=== PATIENT | male | born 1980 | race Caucasian/White ===

== ENCOUNTER 2017-04-24 16:53 | Emergency (ER) | payer MEDICAID ==
[~2017-04-24] VITALS: Ht 162.6 cm; Wt 100.5 kg
[2017-04-24 16:57] VITALS: Ht 162.6 cm; Wt 100.5 kg
[2017-04-24] MEDS ORDERED: CEPHALEXIN 500 MG CAP PO ONE (18:30)
[2017-04-24] MEDS ORDERED: TRIMETHOPRIM/SULFAMETHOX (DS) TAB PO ONE (18:30)
[2017-04-24] MEDS ORDERED: HYDROCODONE/APAP (5/325) TAB PO ONE (18:30)
--- NOTE | 2017-04-24 19:07 | RADRPT ---
PROCEDURE: US Lower extremity Venous. CLINICAL INDICATION: left leg swelling and pain TECHNIQUE: Multiple sonographic images of the left lower extremity deep venous system was obtained utilizing grayscale, color-flow, compressive sonography and doppler imaging with augmentation. The images were reviewed on a PACS workstation. COMPARISON: None. FINDINGS: There is normal compressibility and flow within the left common femoral, deep femoral, superficial f emoral, posterior tibial, peroneal and popliteal veins. IMPRESSION: No sonographic evidence for deep venous thrombosis. RPTAT:AAJJ Physician Juli Date Time Electronically viewed and signed by Physician Juli on 04/24/2017 19:06 LENNY/
--- NOTE | 2017-04-24 19:38 | RADRPT ---
PROCEDURE: XR Ankle. CLINICAL INDICATION: Swelling and ankle pain TECHNIQUE: Three views of the left ankle were performed. COMPARISON: None. FINDINGS: There is no acute osseous or articular abnormality. No evidence for fracture. Bone mineral density is preserved. The articular surfaces are smooth without evidence of marginal erosions. Os trigonum. There is marked soft tissue swelling about the ankle. IMPRESSION: 1. No acute osseous abnormality. 2. Marked soft tissue swelling. RPTAT: UU .Israel Hemphill MD, Date Time Electronically viewed and signed by .Israel Hemphill MD, MD on 04/24/2017 19:38 .d/
--- NOTE | 2017-04-24 19:39 | RADRPT ---
PROCEDURE: XR Tibia and Fibula. CLINICAL INDICATION: Swelling and pain TECHNIQUE: Two views of the left tibia and fibula are available for review. COMPARISON: None available FINDINGS: The left tibia and fibula are intact. No acute fracture or dislocation is seen. No radiopaque fore ign body is identified. There is marked soft tissue swelling about the ankle. IMPRESSION: 1. Soft tissue swelling about the ankle. 2. No acute osseous abnormality. RPTAT: UU .Israel Hemphill MD, Date Time Electronically viewed and signed by .Israel Hemphill MD, MD on 04/24/2017 19:39 .d/
[2017-04-24] MEDS ORDERED: IBUP-1542 PO (19:47)
[2017-04-24] MEDS ORDERED: CEPH-443 PO (19:47)
[2017-04-24] MEDS ORDERED: SULF1TAB31 PO (19:47)
[2017-04-24] MEDS ORDERED: HYDR-906 PO (19:47)
--- NOTE | 2017-04-24 19:55 | ERD ---
ER Documentation Chief Complaint Date/Time DATE: 04/24/17 TIME: 19:48 Chief Complaint Complains of left foot and ankle pain x 3 days HPI Patient is a 36-year-old male who presents to the emergency department for concerns of left lower leg pain 3 days. Patient is a construction equipment mechanic helper. He denies any trauma or fall injuries. Patient states he has pain with ambulating. Patient reports noticing some redness to the anterior aspect of his lower leg. He does have some small punctate lesions. Patient also has significant swelling to his left lower leg. Patient denies any fevers, chills, nausea, vomiting, chest pain, shortness of breath or LOC. No recent travel, prolonged sitting, surgeries or history of DVT/PE.. No sick contacts. ROS All systems reviewed and are negative except as per history of present illness. Medications Home Meds Active Scripts Hydrocodone/Acetaminophen (Macy 5-325 Tablet) 1 Each Tablet, 1 TAB PO Q6H Y for PAIN, #7 TAB Prov:LIBORIO PALOMO PA-C 04/24/17 Ibuprofen* (Motrin*) 600 Mg Tab, 600 MG PO Q6, #30 TAB Prov:LIBORIO PALOMO PA-C 04/24/17 Cephalexin* (Keflex*) 500 Mg Capsule, 500 MG PO TID for 10 Days, CAP Prov:LIBORIO PALOMO PA-C 04/24/17 Sulfamethoxazole/Trimethoprim* (Bactrim Ds* Tablet) 1 Each Tablet, 1 TAB PO BID , #20 TAB Prov:LIBORIO PALOMO PA-C 04/24/17 Allergies Allergies: Coded Allergies: No Known Allergy (Unverified , 04/24/17) PMhx/Soc Medical and Surgical Hx: pt denies Medical Hx, pt denies Surgical Hx History of Surgery: No Anesthesia Reaction: No Hx Neurological Disorder: No Hx Respiratory Disorders: No Hx Cardiac Disorders: No Hx Psychiatric Problems: No Hx Miscellaneous Medical Probl: No Hx Alcohol Use: No Hx Substance Use: No Hx Tobacco Use: No Smoking Status: Never smoker Physical Exam Vitals Vital Signs Date Time Temp Pulse Resp B/P Pulse Ox O2 Delivery O2 Flow Rate FiO2 04/24/17 20:08 98.3 82 18 119/77 97 Room Air 04/24/17 16:57 100.0 110 20 149/85 97 Physical Exam GENERAL: Well-developed, well-nourished male. Appears in no acute distress. HEAD: Normocephalic, atraumatic. EYES: Pupils are equally reactive bilaterally. EOMs grossly intact. No conjunctival erythema. ENT: Moist mucous membranes. No uvula deviation. No kissing tonsils. NECK: Supple. No meningismus. Normal range of motion of the neck. LUNG: Clear to auscultation bilaterally. No rhonchi, wheezing, rales or coarse breath sounds. HEART: Regular rate and rhythm. No murmurs, rubs or gallops. EXTREMITIES: Equal pulses bilaterally. No peripheral clubbing, cyanosis or edema. No unilateral leg swelling. NEUROLOGIC: Alert and oriented. Moving all four extremities without any difficulty. Normal speech. Steady gait. SKIN: Normal color. Warm and dry. LEFT LE: No obvious deformity. Swelling of the ankle and anterior flor noted. Faint erythema noted throughout the lower extremity. No circumferential erythema.. 2 Small punctate lesions noted. Normal range of motion of the knee. Decreased range of motion of the ankle secondary to swelling. Area is tender to touch and is slightly warm. Sensation intact to light touch. Neurovascularly intact. (Able to plantarflex, dorsiflex, vladislav foot, invert foot , raise big toe.) 2+ DP and DT pulses. Results 24 hrs Current Medications Medications (Trade) Dose Ordered Sig/Ly Route PRN Reason Start Time Stop Time Status Last Admin Dose Admin Trimethoprim/ Sulfamethoxazole (Bactrim (Ds)) 1 tab ONCE ONCE PO 04/24/17 18:30 04/24/17 18:31 DC 04/24/17 18:35 Cephalexin (Keflex) 500 mg ONCE ONCE PO 04/24/17 18:30 04/24/17 18:31 DC 04/24/17 18:35 Acetaminophen/ Hydrocodone Bitart (Macy (5/325)) 1 tab ONCE ONCE PO 04/24/17 18:30 04/24/17 18:31 DC 04/24/17 18:35 Procedures/MDM ED COURSE: The patient was stable throughout ED course. I kept the patient and/or family informed of laboratory and diagnostic imaging results throughout the ED course. DIAGNOSTIC IMAGING: Read by radiologist. Patient: BERNARDO CORNEJO : 1980 Age: 36 Sex: M MR #: [id number] DOS: 04/24/171825 Ordering MD: LIBORIO PALOMO PA-C Location: [facility] Room/Bed: PROCEDURE: XR Tibia and Fibula. CLINICAL INDICATION: Swelling and pain TECHNIQUE: Two views of the left tibia and fibula are available for review. COMPARISON: None available FINDINGS: The left tibia and fibula are intact. No acute fracture or dislocation is seen. No radiopaque foreign body is identified. There is marked soft tissue swelling about the ankle. IMPRESSION: 1. Soft tissue swelling about the ankle. 2. No acute osseous abnormality. RPTAT: UU .Israel Hemphill MD, MD Date Time Electronically viewed and signed by .Israel Hemphill MD, MD on 04/24/2017 19:39 .d/ CC: LIBORIO PALOMO PA-C DIAGNOSTIC IMAGING REPORT Patient: BERNARDO CORNEJO : 1980 Age: 36 Sex: M [id number] DOS: 04/24/171825 Ordering MD: LIBORIO PALOMO PA-C Location: [facility] Room/Bed: PROCEDURE: XR Ankle. CLINICAL INDICATION: Swelling and ankle pain TECHNIQUE: Three views of the left ankle were performed. COMPARISON: None. FINDINGS: There is no acute osseous or articular abnormality. No evidence for fracture. Bone mineral density is preserved. The articular surfaces are smooth without evidence of marginal erosions. Os trigonum. There is marked soft tissue swelling about the ankle. IMPRESSION: 1. No acute osseous abnormality. 2. Marked soft tissue swelling. RPTAT: UU .Israel Hemphill MD, MD Date Time Electronically viewed and signed by .Israel Hemphill MD, MD on 04/24/2017 19:38 .d/ CC: LIBORIO PALOMO PA-C Patient: BERNARDO CORNEJO : 1980 Age: 36 Sex: M [id number] DOS: 04/24/17 1837 Ordering MD: LIBORIO PALOMO PA-C Location: [facility] Room/Bed: PROCEDURE: US Lower extremity Venous. CLINICAL INDICATION: left leg swelling and pain TECHNIQUE: Multiple sonographic images of the left lower extremity deep venous system was obtained utilizing grayscale, color-flow, compressive sonography and doppler imaging with augmentation. The images were reviewed on a PACS workstation. COMPARISON: None. FINDINGS: There is normal compressibility and flow within the left common femoral, deep femoral, superficial femoral, posterior tibial, peroneal and popliteal veins. IMPRESSION: No sonographic evidence for deep venous thrombosis. RPTAT:AAJJ Physician Juli Date Time Electronically viewed and signed by Physician Juli on 04/24/2017 19: 06 MC/ CC: LIBORIO PALOMO PA-C MEDICATIONS GIVEN: Bactrim, Keflex, Macy Patient tolerated medication well with no adverse reactions. Patient reported improvement in pain. MEDICAL DECISION MAKING: This is a 36-year-old male who presents with left lower leg pain and swelling 3 days. Vital signs were reviewed. Patient was noted to have a low grade temperature which did improve prior to discharge. Patient denies history of diabetes. 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 Skin exam revealed faint erythema, swelling and warmth to the left lower extremity. Area was tender to touch. No circumferential erythema was noted. Doppler study of the left lower extremity was negative for DVT. X- rays of the left foot ankle as well as tibia-fibula were unremarkable except for small marked soft tissue swelling. The affected area was marked and dated. Patient was advised to return to the ED for any worsening redness or swelling prior to wound check. Given these findings, the patients presentation is most consistent with cellulitis. Patient was started on his first dose of antibiotics here in the emergency department. I have a much lower clinical concern for ankle dislocation, ankle fracture, tibia fracture, fibula fracture, tibial plateau fracture, Maisonneuve fracture, foot fracture, osteomyelitis, septic joint, DVT , compartment syndrome or ankle sprain. at this time, unable to rule out any tendon and ligament injuries. PRESCRIPTIONS: Macy, Ibuprofen, Keflex, Bactrim DISCHARGE: At this time, patient is stable for discharge and outpatient management. He was given a copy of all imaging studies obtained today. Patient was advised to return to the emergency department 2 days for wound recheck. Patient return sooner for any spreading redness, swelling, warmth, fevers or chills. Patient was advised to start antibiotics SERAFIN. I have instructed the patient to follow- up with his/her primary care physician in 1-2 days. I have discussed with the patient the possibility of needing to see an marine cargo specialist for further workup and imaging if the pain persists. I have instructed the patient to promptly return to the ER for any new or worsening symptoms including increased pain, swelling, redness, warmth or fever. The patient and/or family expressed understanding of and agreement with this plan. All questions were answered. Home care instructions were provided. Disclaimer: Inadvertent spelling and grammatical errors are likely due to EHR/ dictation software use and do not reflect on the overall quality of patient care. Also, please note that the electronic time recorded on this note does not necessarily reflect the actual time of the patient encounter. Departure Diagnosis: Primary Impression: Cellulitis of left leg Condition: Stable Patient Instructions: Cellulitis Referrals: [facility] YOU HAVE RECEIVED A MEDICAL SCREENING EXAM AND THE RESULTS INDICATE THAT YOU DO NOT HAVE A CONDITION THAT REQUIRES URGENT TREATMENT IN THE EMERGENCY DEPARTMENT. FURTHER EVALUATION AND TREATMENT OF YOUR CONDITION CAN WAIT UNTIL YOU ARE SEEN IN YOUR DOCTORS OFFICE WITHIN THE NEXT 1-2 DAYS. IT IS YOUR RESPONSIBILITY TO MAKE AN APPOINTMENT FOR FOLOW-UP CARE. IF YOU HAVE A PRIMARY DOCTOR --you should call your primary doctor and schedule an appointment IF YOU DO NOT HAVE A PRIMARY DOCTOR YOU CAN CALL OUR PHYSICIAN REFERRAL HOTLINE AT IF YOU CAN NOT AFFORD TO SEE A PHYSICIAN YOU CAN CHOSE FROM THE FOLLOWING [facility] [address] [facility] [address] [facility] [address] [facility] [address] [facility] [address] [facility]. [facility] [address] [facility]. [facility] YOU HAVE RECEIVED A MEDICAL SCREENING EXAM AND THE RESULTS INDICATE THAT YOU DO NOT HAVE A CONDITION THAT REQUIRES URGENT TREATMENT IN THE EMERGENCY DEPARTMENT. FURTHER EVALUATION AND TREATMENT OF YOUR CONDITION CAN WAIT UNTIL YOU ARE SEEN IN YOUR DOCTORS OFFICE WITHIN THE NEXT 1-2 DAYS. IT IS YOUR RESPONSIBILITY TO MAKE AN APPOINTMENT FOR FOLOW-UP CARE. IF YOU HAVE A PRIMARY DOCTOR --you should call your primary doctor and schedule and appointment IF YOU DO NOT HAVE A PRIMARY DOCTOR YOU CAN CALL OUR PHYSICIAN REFERRAL HOTLINE AT . IF YOU CAN NOT AFFORD TO SEE A PHYSICIAN YOU CAN CHOSE FROM THE FOLLOWING [facility]STITUTIONS: [facility] [address] [place] [address] [facility] [address] [place] [address] [facility] [address] [place] [address] Additional Instructions: Return to the emergency department 2 days for wound recheck. Return sooner for any worsening redness, swelling, pain, fever or chills. Call your primary care doctor TOMORROW for an appointment during the next 1-2 days.See the doctor sooner or return here if your condition worsens before your appointment time. LIBORIO PALOMO PA-C Apr 24, 2017 19:55
[2017-04-24 20:08] VITALS: BP 119/77; PULSE 82; RESP 18; TEMP 98.3
== END 2017-04-24 20:08 | disposition home or self-care (01) ==
LOC: FTE 16:53
DX: L03.116 Cellulitis of left lower limb (principal)
CPT/HCPCS: 73590; 73610; 93971; Z7502; Z7610